=== PATIENT | female | born 1960 | race Caucasian/White ===

== ENCOUNTER → 2020-07-24 14:31 | Outpatient (CLI) | payer OTHER, SELFPAY ==
[2020-07-24 15:07] LABS: COVID19 -Nasal RAPID Negative (Negative)
== END ==
PROVIDERS: Family Provider Family Medicine; PCP Family Medicine; Visit Provider Physician Assistant
DX: Z01.812 Encounter for preprocedural laboratory examination (principal); Z20.822 Contact with and (suspected) exposure to COVID-19
CPT/HCPCS: 87635

== ENCOUNTER 2020-07-26 11:22 | Observation (INO) | payer OTHER, SELFPAY ==
[2020-07-26] VITALS (9 sets, daily range): BP systolic 114–160; BP diastolic 56–100; PULSE 70–113; RESP 14–20; TEMP 36.6–37; O2SAT 97–100; BMI 27.4
[2020-07-26 11:45] LABS: Add Manual Diff / Slide Review NO; Basophils Absolute Auto 100 /uL (0-100); Basophils Percent Auto 0.5 % (0-2); Eosinophils Absolute Auto 0 /uL (0-450); Eosinophils Percent Auto 0.1 % (2-4); Hematocrit 39.5 % (36-46); Hemoglobin 13.2 g/dL (12.0-16.0); Lymphocytes Absolute Auto 1100 /uL (1100-4500); Lymphocytes Percent Auto 8.8 % (25-40); Mean Corpuscular HGB Conc 33.4 % (30-36); Mean Corpuscular Hemoglobin 28.8 PG (26-34); Mean Corpuscular Volume 86.2 fL (80-100); Monocytes Absolute Auto 900 /uL (0-900); Monocytes Percent Auto 7.1 % (3-14); Neutrophils Absolute Auto 10700 /uL (1500-7000); Neutrophils Percent Auto 83.5 % (50-75); Platelet Count 254 X10^3/uL (150-400); Red Blood Cell Count 4.58 X10^6/uL (4.0-5.2); White Blood Cell Count 12.8 X10^3/uL (4.5-11.0)
[2020-07-26 11:51] LABS: Prothrombin Time 11.6 SECONDS (10.1-12.7)
[2020-07-26 11:54] LABS: PTT Partial Thromboplastin Tim 31 SECONDS (26.4-36.2)
[2020-07-26 11:56] LABS: Alanine Aminotransferase 20 IU/L (<35); Albumin 4.8 g/dL (3.5-5.0); Albumin Globulin Ratio 1.3 (1.0-2.8); Alkaline Phosphatase 83 U/L (38-126); Aspartate Aminotransferase 28 IU/L (14-36); Bilirubin Total 0.7 mg/dL (0.2-1.3); Blood Urea Nitrogen 8 mg/dL (7-17); Calcium 9.7 mg/dL (8.4-10.2); Carbon Dioxide 25 mmol/L (22-32); Chloride 103 mmol/L (98-107); Estimated Glomerular Filt Rate > 60.0 mL/min (>60); Globulin 3.6 g/dL (1.7-4.1); Glucose 125 mg/dL (70-100); HEMOLYSIS < 15 (0-50); Lipase 79 U/L (23-300); Potassium 3.5 mmol/L (3.4-5.1); Sodium 137 mmol/L (137-145); Total Protein 8.4 g/dL (6.3-8.2)
--- NOTE | 2020-07-26 11:58 | ED_ITS ---
HPI - Abdominal Pain General Chief Complaint: Abdominal Pain Stated Complaint: abd pain right side Time Seen by Provider: 07/26/20 11:54 Source: patient Mode of arrival: Ambulatory Limitations: no limitations History of Present Illness HPI narrative: Patient is a 59-year-old female with history of colon polyps presenting today actually for colonoscopy this afternoon she had prep last night and suddenly developed right lower quadrant pain. She has no flank pain it has not migrated or radiated. She has had episodes of nausea and vomiting as well. She thought initially the pain was from colonoscopy prep but it has persisted and continued to be in 1 location. No fever or chills was feeling well yesterday. Colonoscopy is routine and follow-up. MD complaint: abdominal pain Onset (ago): hour(s) Pain Consistency: constant Location: RLQ Severity: moderate Quality: cramping and stabbing Radiation: none Migration to: no migration Relieving factors: nothing Related Data Allergies Allergy/AdvReac Type Severity Reaction Status Date / Time latex Allergy Verified 07/26/20 11:37 paroxetine [From Paxil] Allergy Verified 07/26/20 11:37 Review of Systems Review of Systems Narrative: GENERAL: Denies chills, fatigue, malaise, fever, sweats, travel HEENT: Denies sinus pain, ear pain, sore throat, difficulty swallowing, neck pain RESPIRATORY: Denies dyspnea, cough, wheezing, hemoptysis, sputum. CARDIOVASCULAR: Denies chest pain, palpitations, orthopnea, edema GASTROINTESTINAL: See HPI : Denies dysuria, frequency, incontinence, hematuria, urinary retention, flank pain. MUSCULOSKELETAL: Denies weakness, joint pain, or bony pain SKIN: No rash, no erythema, no pruritus NEUROLOGIC: Denies weakness, dizziness, headache, numbness, change in speech, confusion PSYCHIATRIC: No concerning psychosocial issues. 12 point review of systems is negative except for those stated above and HPI Patient History Social History household members: spouse Smoking Status: Unknown if ever smoked Smoking Status: Unknown if ever smoked alcohol intake frequency: holidays/special occasions only Substance Use Type: does not use Exam Initial Vital Signs Initial Vital Signs: Vital Signs Temperature 98.4 F 07/26/20 11:30 Pulse Rate 98 H 07/26/20 11:30 Respiratory Rate 14 07/26/20 11:30 Blood Pressure 160/73 H 07/26/20 11:30 Pulse Oximetry 99 07/26/20 11:30 GENERAL: Well appearing 59-year-old female and in no acute distress. HEENT: Head atraumatic,EOMI, pupils reactive, face symmetric, moist mucous membranes CARDIOVASCULAR: Regular rate and rhythm without murmurs, rubs or gallops. RESPIRATORY: Breath sounds equal bilaterally, no wheezes rales or rhonchi. ABDOMEN: Soft, tender right lower quadrant pain negative Rovsing sign is negative Head sign no guarding or rebound : No CVA tenderness EXTREMITIES: Normal range of motion, no clubbing or edema. Neurovascularly intact NEUROLOGICAL: Alert and oriented x4.Normal gait and speech. Cranial nerves II through XII grossly intact. SKIN: Warm, dry, no laceration, no petechiae, no rashes or lesions. Course Orders Ordered: ED Orders 07/26/20 11:26 Urine Microscopic Stat 07/26/20 11:38 EKG-12 Lead Stat 07/26/20 11:39 Complete Blood Count AUTO DIFF Stat Comprehensive Metabolic Panel Stat Lipase Stat Partial Thromboplastin Time Stat Prothrombin Time INR Stat 07/26/20 12:37 CT abdomen pelvis w con Stat Acetaminophen (Acetaminophen 325 Mg Tablet) 650 mg PO Q6HR PRN PRN Reason: Fever/Mild Pain (1-3) Hydrocodone Bitart/Acetaminophen (Hydrocodone/Acet 5/325 Tablet) 1 tab PO Q4HR PRN PRN Reason: Pain, Moderate (4-6) Lactated Ringer's (Lactated Ringers) 1,000 mls @ 100 mls/hr IV CONT PEPITO Last Admin: 07/26/20 16:02 Dose: 100 mls/hr Documented by: Infusion: 07/26/20 16:02 Dose: 100 mls/hr Documented by: Admin: 07/26/20 15:49 Dose: 100 mls/hr Documented by: CARL Piperacillin Sod/Tazobactam (Sod 3.375 gm/ Sodium Chloride) 100 mls @ 25 mls/hr IV Q8H PEPITO Ketorolac Tromethamine (Ketorolac 30 Mg/Ml Vial) 15 mg IV Q6H PRN PRN Reason: Pain, Moderate (4-6) Stop: 07/31/20 14:36 Ondansetron HCl (Ondansetron 4 Mg/2 Ml Inj) 4 mg IV Q6HR PRN PRN Reason: Nausea And Vomiting Discontinued Medications Diphenhydramine HCl (Diphenhydramine 50 Mg/Ml Vial) 25 mg IV NOW ONE Stop: 07/26/20 12:12 Last Admin: 07/26/20 12:18 Dose: 25 mg Documented by: JACKIE Piperacillin Sod/Tazobactam (Sod 4.5 gm/ Sodium Chloride) 100 mls @ 200 mls/hr IV NOW ONE Stop: 07/26/20 15:14 Last Infusion: 07/26/20 15:43 Dose: 0 mls/hr Documented by: Infusion: 07/26/20 15:00 Dose: 0 mls/hr Documented by: Admin: 07/26/20 14:43 Dose: 200 mls/hr Documented by: JACKIE Ketorolac Tromethamine (Ketorolac 30 Mg/Ml Vial) 15 mg IV Q6H PEPITO Stop: 07/31/20 14:36 Last Admin: 07/26/20 16:05 Dose: Not Given Documented by: CARL Methylprednisolone (Methylprednisolone 125 Mg/2 Ml Vial) 125 mg IV NOW ONE Stop: 07/26/20 12:12 Last Admin: 07/26/20 12:18 Dose: 125 mg Documented by: JACKIE Vital Signs Vital signs: Vital Signs - 8 hr 07/26/20 11:30 07/26/20 12:22 07/26/20 12:23 Temperature 98.4 F Pulse Rate 98 H 113 H 108 H Respiratory Rate 14 Blood Pressure 160/73 H 157/87 H Pulse Oximetry 99 100 100 07/26/20 12:30 07/26/20 13:00 Temperature Pulse Rate 87 80 Respiratory Rate 20 Blood Pressure 147/72 H 134/100 H Pulse Oximetry 100 99 MDM - Abdominal Pain Lab Data Attestation: I reviewed the patient's lab results. Result diagrams: 07/26/20 11:39 07/26/20 11:39 Labs: Lab Results 07/26/20 07/26/20 07/26/20 Range/Units 11:26 11:39 11:39 WBC 12.8 H (4.5-11.0) X10^3/uL RBC 4.58 (4.0-5.2) X10^6/uL Hgb 13.2 (12.0-16.0) g/dL Hct 39.5 (36-46) % MCV 86.2 (80-100) fL MCH 28.8 (26-34) PG MCHC 33.4 (30-36) % RDW 13.0 (11.6-14.8) % Plt Count 254 (150-400) X10^3/uL Neut % (Auto) 83.5 H (50-75) % Lymph % (Auto) 8.8 L (25-40) % [place] % (Auto) 7.1 (3-14) % Eos % (Auto) 0.1 L (2-4) % Baso % (Auto) 0.5 (0-2) % Neut # (Auto) 84008 H (9749-0102) /uL Lymph # (Auto) 1100 (0916-2360) /uL [place] # (Auto) 900 (0-900) /uL Eos # (Auto) 0 (0-450) /uL Baso # (Auto) 100 (0-100) /uL PT 11.6 (10.1-12.7) SECONDS INR 1.0 (0.9-1.3) APTT 31 (26.4-36.2) SECONDS Sodium (137-145) mmol/L Potassium (3.4-5.1) mmol/L Chloride (98-107) mmol/L Carbon Dioxide (22-32) mmol/L BUN (7-17) mg/dL Creatinine (0.52-1.04) mg/dL Estimated GFR (>60) mL/min BUN/Creatinine Ratio (6-22) Glucose (70-100) mg/dL Calcium (8.4-10.2) mg/dL Total Bilirubin (0.2-1.3) mg/dL AST (14-36) IU/L ALT (<35) IU/L Alkaline Phosphatase (38-126) U/L Total Protein (6.3-8.2) g/dL Albumin (3.5-5.0) g/dL Globulin (1.7-4.1) g/dL Albumin/Globulin Ratio (1.0-2.8) Lipase (23-300) U/L Urine RBC 5-10/hpf H (0-5/HPF) Urine WBC 0-1/hpf (0-5/HPF) Ur Squamous Epith Cells 0-1 /hpf (0-5/HPF) Urine Bacteria Few (2-10) H (None) Urine Mucus 1+ H (Negative) Ur Culture Indicated? Cult not indicated 07/26/20 Range/Units 11:39 WBC (4.5-11.0) X10^3/uL RBC (4.0-5.2) X10^6/uL Hgb (12.0-16.0) g/dL Hct (36-46) % MCV (80-100) fL MCH (26-34) PG MCHC (30-36) % RDW (11.6-14.8) % Plt Count (150-400) X10^3/uL Neut % (Auto) (50-75) % Lymph % (Auto) (25-40) % [place] % (Auto) (3-14) % Eos % (Auto) (2-4) % Baso % (Auto) (0-2) % Neut # (Auto) (5210-2964) /uL Lymph # (Auto) (5893-7459) /uL [place] # (Auto) (0-900) /uL Eos # (Auto) (0-450) /uL Baso # (Auto) (0-100) /uL PT (10.1-12.7) SECONDS INR (0.9-1.3) APTT (26.4-36.2) SECONDS Sodium 137 (137-145) mmol/L Potassium 3.5 (3.4-5.1) mmol/L Chloride 103 (98-107) mmol/L Carbon Dioxide 25 (22-32) mmol/L BUN 8 (7-17) mg/dL Creatinine 0.73 (0.52-1.04) mg/dL Estimated GFR > 60.0 (>60) mL/min BUN/Creatinine Ratio 11.0 (6-22) Glucose 125 H (70-100) mg/dL Calcium 9.7 (8.4-10.2) mg/dL Total Bilirubin 0.7 (0.2-1.3) mg/dL AST 28 (14-36) IU/L ALT 20 (<35) IU/L Alkaline Phosphatase 83 (38-126) U/L Total Protein 8.4 H (6.3-8.2) g/dL Albumin 4.8 (3.5-5.0) g/dL Globulin 3.6 (1.7-4.1) g/dL Albumin/Globulin Ratio 1.3 (1.0-2.8) Lipase 79 (23-300) U/L Urine RBC (0-5/HPF) Urine WBC (0-5/HPF) Ur Squamous Epith Cells (0-5/HPF) Urine Bacteria (None) Urine Mucus (Negative) Ur Culture Indicated? Point of care testing: Urine Dip Bedside Urine Glucose Negative Bedside Urine Bilirubin - Negative Bedside Urine Ketone - Negative Urine Specific [place] 1.03 Bedside Urine Occult Blood +++ Bedside Urine pH 6.0 Bedside Urine Protein - Negative Bedside Urine Urobilinogen - Negative Bedside Urine Nitrite - Negative Bedside Urine Leukocytes - Negative Esterase Imaging Data CT scan - abdomen/pelvis: Radiologist's Impression: PROCEDURE: CT ABDOMEN PELVIS W CON INDICATIONS: RIGHT LOWER QUAD PAIN TECHNIQUE: After the administration of intravenous contrast, 5 mm thick sections acquired from the diaphragm to the symphysis. 5 mm coronal and sagittal reformats were acquired. For radiation dose reduction, the following was used: automated exposure control, adjustment of mA and/or kV according to patient size. COMPARISON: [facility], CT, ABDOMEN/PELVIS WITHOUT CONTRAST, 06/12/2010, 12:11. FINDINGS: Image quality: Excellent. ABDOMEN: Lung bases: There is minimal dependent atelectasis. Heart size is normal. There is a small hiatal hernia. Solid organs: There are a few hepatic cysts. The gallbladder appears within normal limits without calcified gallstones. Biliary system is non-dilated. Pancreas enhances normally. No peripancreatic fat stranding or fluid collections. No pancreatic duct dilatation. The spleen is normal in size. No adrenal nodules. Kidneys demonstrate no hydronephrosis. Peritoneum and bowel: Bowel loops demonstrate normal wall thickness and caliber. The appendix demonstrates mild distention with wall thickening, measuring up to approximately 1.2 cm in diameter, with associated periappendiceal fat stranding. Findings are consistent with acute appendicitis. There is a small amount of adjacent free fluid in the right paracolic gutter. No free air. No discrete loculated abscess collection. Nodes and vessels: No retroperitoneal or mesenteric adenopathy by size criteria. Aorta and inferior vena cava are normal in size. Miscellaneous: No ventral hernias. PELVIS: Genitourinary: Bladder wall thickness is normal. Miscellaneous: No inguinal hernias or adenopathy. Bones: No suspicious bony lesions. No vertebral body compression fractures. IMPRESSION: 1. Findings consistent with acute appendicitis. A small amount of adjacent free fluid is demonstrated in the right paracolic gutter which may be reactive or reflect early perforation. Findings discussed with Dr. Schwab on 07/26/20 at 1:35 p.m.. Dictated by: Diego Kan M.D. on 07/26/2020 at 13:33 Approved by: Diego Kan M.D. on 07/26/2020 at 13:40 MDM Narrative Medical decision making narrative: Patient is quite tender in her right lower quadrant she has no flank pain or radiation of pain to her groin to suggest kidney stone although she does have blood in her urine. CT does confirm acute appendicitis with mild leukocytosis of 12. Dr. Aguirre, surgery in the ED to see and evaluate patient. At this time recommend antibiotics and admission. Discharge Plan Departure Patient Disposition: Admitted As Inpatient Clinical Impression: Acute appendicitis Admit Date/Time: 07/26/20 14:31 Admit Provider: Radha Aguirre
[2020-07-26 11:59] LABS: Bacteria Urine Few (2-10); Culture Indicated Urine Cult Not Indicated; Mucus Urine 1+ (Negative); RBC Urine 5-10/HPF (0-5/HPF); Squamous Epithelial Cell Urine 0-1 /HPF (0-5/HPF); WBC Urine 0-1/HPF (0-5/HPF)
[2020-07-26] MEDS: methylPREDNISolone 125 MG/2 ML VIAL IV (12:18)
[2020-07-26] MEDS: diphenhydrAMINE 50 MG/ML VIAL 25 MG IV (12:18)
--- NOTE | 2020-07-26 12:37 | DI.CT.S_ITS ---
PROCEDURE: CT ABDOMEN PELVIS W CON INDICATIONS: RIGHT LOWER QUAD PAIN TECHNIQUE: After the administration of intravenous contrast, 5 mm thick sections acquired from the diaphragm to the symphysis. 5 mm coronal and sagittal reformats were acquired. For radiation dose reduction, the following was used: automated exposure control, adjustment of mA and/or kV according to patient size. COMPARISON: [facility], CT, ABDOMEN/PELVIS WITHOUT CONTRAST, 06/12/2010, 12:11. FINDINGS: Image quality: Excellent. ABDOMEN: Lung bases: There is minimal dependent atelectasis. Heart size is normal. There is a small hiatal hernia. Solid organs: There are a few hepatic cysts. The gallbladder appears within normal limits without calcified gallstones. Biliary system is non-dilated. Pancreas enhances normally. No peripancreatic fat stranding or fluid collections. No pancreatic duct dilatation. The spleen is normal in size. No adrenal nodules. Kidneys demonstrate no hydronephrosis. Peritoneum and bowel: Bowel loops demonstrate normal wall thickness and caliber. The appendix demonstrates mild distention with wall thickening, measuring up to approximately 1.2 cm in diameter, with associated periappendiceal fat stranding. Findings are consistent with acute appendicitis. There is a small amount of adjacent free fluid in the right paracolic gutter. No free air. No discrete loculated abscess collection. Nodes and vessels: No retroperitoneal or mesenteric adenopathy by size criteria. Aorta and inferior vena cava are normal in size. Miscellaneous: No ventral hernias. PELVIS: Genitourinary: Bladder wall thickness is normal. Miscellaneous: No inguinal hernias or adenopathy. Bones: No suspicious bony lesions. No vertebral body compression fractures. IMPRESSION: 1. Findings consistent with acute appendicitis. A small amount of adjacent free fluid is demonstrated in the right paracolic gutter which may be reactive or reflect early perforation. Findings discussed with Dr. Schwab on 07/26/20 at 1:35 p.m.. Dictated by: Diego Kan M.D. on 07/26/2020 at 13:33 Approved by: Diego Kan M.D. on 07/26/2020 at 13:40
[2020-07-26] MEDS: PIPERACILLIN/TAZO 4.5 GM in SODIUM CHLORIDE 0.9% 100 ML 200 ML IV (14:43)
--- NOTE | 2020-07-26 14:55 | P.HP_ITS ---
History of Present Illness History of Present Illness Date Patient Seen: 07/26/20 Time Patient Seen: 14:56 Date of Onset of Symptoms: 07/25/20 Chief complaint: abd pain right side Narrative: Had discomfort yesterday but began bowel prep for colonoscopy. Colonoscopy scheduled for today to coincide with 's since they are now from [facility]. Pain worsened and she was seen in ED. CT scan shows acute appendicitis. no fecal lith, possible right colic free fluid. Labs reveiwed as well. Pain localized to RLQ and is dull. She had an episode similar several years ago that spontaneously resolved. Her history also is concerning for a serrated adenoma in ascending colon in 2010. Patient History Family & Social History Safety & Behavioral: Feels Safe in Current Yes Environment Been Physically Hurt or No Threatened By a Person Tobacco & Substance use: Smoking Status Unknown if ever smoked alcohol intake frequency holiday/special occasion Substance Use Type does not use Meds Home Medications and Allergies Allergies Allergy/AdvReac Type Severity Reaction Status Date / Time latex Allergy Verified 07/26/20 11:37 paroxetine [From Paxil] Allergy Verified 07/26/20 11:37 Review of Systems Review of Systems Narrative: RLQ pain, no fever. No cough. See is vacinated for Covid and Covid negative. ROS: Yes All systems reviewed with the patient and are negative except as otherwise documented Exam Vital Signs (past 8 hours): - 07/26/20 11:30 07/26/20 12:22 07/26/20 12:23 Temperature 98.4 F Pulse Rate 98 H 113 H 108 H Respiratory Rate 14 Blood Pressure 160/73 H 157/87 H Pulse Oximetry 99 100 100 07/26/20 12:30 07/26/20 13:00 Temperature Pulse Rate 87 80 Respiratory Rate 20 Blood Pressure 147/72 H 134/100 H Pulse Oximetry 100 99 Oxygen Delivery Method Room Air Const General: cooperative and healthy appearing Nutritional Appearance: average body habitus HENWA Head: normal to inspection Ears: hearing grossly normal bilaterally Nose: external nose normal Eyes General: appearance normal, both eyes and all related structures Alignment and Position: alignment normal Sclera: sclerae normal Neck Neck: trachea midline Chest Chest: normal inspection of the chest Resp Effort & Inspection: normal respiratory effort and able to speak in complete sentences Auscultation: clear to auscultation bilaterally Cardio Rate: tachycardic Rhythm: regular rhythm GI Inspection: normal to inspection Palpation: soft and tender (RLQ tenderness) Skin General: no rashes or lesions noted Trauma: no lacerations or abrasions Neuro General: patient alert and patient oriented x3 Extrem General: normal to inspection and full ROM Psych Appearance: grossly normal Judgment: judgment good Objective Labs Result Diagrams: 07/26/20 11:39 07/26/20 11:39 Labs: Laboratory Results - last 24 hr 07/26/20 07/26/20 07/26/20 11:26 11:39 11:39 WBC 12.8 H RBC 4.58 Hgb 13.2 Hct 39.5 MCV 86.2 MCH 28.8 MCHC 33.4 RDW 13.0 Plt Count 254 Neut % (Auto) 83.5 H Lymph % (Auto) 8.8 L [place] % (Auto) 7.1 Eos % (Auto) 0.1 L Baso % (Auto) 0.5 Neut # (Auto) 60214 H Lymph # (Auto) 1100 [place] # (Auto) 900 Eos # (Auto) 0 Baso # (Auto) 100 PT 11.6 INR 1.0 APTT 31 Sodium Potassium Chloride Carbon Dioxide BUN Creatinine Estimated GFR BUN/Creatinine Ratio Glucose Calcium Total Bilirubin AST ALT Alkaline Phosphatase Total Protein Albumin Globulin Albumin/Globulin Ratio Lipase Urine RBC 5-10/hpf H Urine WBC 0-1/hpf Ur Squamous Epith Cells 0-1 /hpf Urine Bacteria Few (2-10) H Urine Mucus 1+ H Ur Culture Indicated? Cult not indicated 07/26/20 11:39 WBC RBC Hgb Hct MCV MCH MCHC RDW Plt Count Neut % (Auto) Lymph % (Auto) [place] % (Auto) Eos % (Auto) Baso % (Auto) Neut # (Auto) Lymph # (Auto) [place] # (Auto) Eos # (Auto) Baso # (Auto) PT INR APTT Sodium 137 Potassium 3.5 Chloride 103 Carbon Dioxide 25 BUN 8 Creatinine 0.73 Estimated GFR > 60.0 BUN/Creatinine Ratio 11.0 Glucose 125 H Calcium 9.7 Total Bilirubin 0.7 AST 28 ALT 20 Alkaline Phosphatase 83 Total Protein 8.4 H Albumin 4.8 Globulin 3.6 Albumin/Globulin Ratio 1.3 Lipase 79 Urine RBC Urine WBC Ur Squamous Epith Cells Urine Bacteria Urine Mucus Ur Culture Indicated? Assessment & Plan Assessment & Plan narrative: I reveiwed the CT scan personally and agree with appendicitis, along with benign liver cyst. Plan: medical manage for acute appendicitis, recheck in am to determine if it is successful. Then discharge with 5 days po antibiotics for completed treatment of appendicitis and reschedule the colonoscopy. COVID-19 COVID-19 status: Negative Time Spent With Patient Time with patient: 15-24 minutes
[2020-07-26] MEDS: LACTATED RINGERS 1,000 ML 100 ML IV ×2 (15:49→16:02)
[2020-07-26] MEDS: PIPERACILLIN/TAZO 3.375 GM in SODIUM CHLORIDE 0.9% 100 ML 25 ML IV (18:25)
[2020-07-26 20:50] LABS: COVID19 - ADMIT (NP swab/PCR) Negative (Negative)
[2020-07-27] MEDS: LACTATED RINGERS 1,000 ML 100 ML IV (01:49)
[2020-07-27] MEDS: PIPERACILLIN/TAZO 3.375 GM in SODIUM CHLORIDE 0.9% 100 ML 25 ML IV (03:00)
[2020-07-27 05:00] VITALS: BP 110/64; PULSE 76; RESP 16; TEMP 36.6; O2SAT 97
[2020-07-27 08:05] VITALS: BP 124/64; PULSE 70; RESP 16; TEMP 36.7; O2SAT 100
--- NOTE | 2020-07-27 09:32 | P.DS_ITS ---
History of Present Illness History of Present Illness Chief complaint: abd pain right side Narrative: Had discomfort yesterday but began bowel prep for colonoscopy. Colonoscopy scheduled for today to coincide with 's since they are now from [facility]. Pain worsened and she was seen in ED. CT scan shows acute appendicitis. no fecal lith, possible right colic free fluid. Labs reveiwed as well. Pain localized to RLQ and is dull. She had an episode similar several years ago that spontaneously resolved. Her history also is concerning for a serrated adenoma in ascending colon in 2010. Discharge Providers Provider Date of admission: 07/26/20 14:31 Discharge Date: 07/27/20 Primary care physician: Phu Kraft MD Discharge provider: Radha Aguirre MD Summary Hospital Course Discharge Diagnosis: appendicitis, h/o colon polyps Hospital Course: appendicitis responded to medical management of antibiotics Status at Discharge Cognitive/behavioral status at discharge: oriented Functional status at discharge: independent ambulation Overall status at discharge: patient is back to baseline Time Spent with Patient Time spent: Less than 30 minutes Exam Vital Signs (past 8 hours): - 07/27/20 05:00 07/27/20 08:05 Temperature 97.8 F 98.1 F Pulse Rate 76 70 Respiratory Rate 16 16 Blood Pressure 110/64 124/64 Pulse Oximetry 97 100 Oxygen Delivery Method Room Air Oxygen Flow Rate 0 Objective Labs Result Diagrams: 07/26/20 11:39 07/26/20 11:39 Labs: Laboratory Results - last 24 hr 07/26/20 07/26/20 07/26/20 11:26 11:39 11:39 WBC 12.8 H RBC 4.58 Hgb 13.2 Hct 39.5 MCV 86.2 MCH 28.8 MCHC 33.4 RDW 13.0 Plt Count 254 Neut % (Auto) 83.5 H Lymph % (Auto) 8.8 L [place] % (Auto) 7.1 Eos % (Auto) 0.1 L Baso % (Auto) 0.5 Neut # (Auto) 35492 H Lymph # (Auto) 1100 [place] # (Auto) 900 Eos # (Auto) 0 Baso # (Auto) 100 PT 11.6 INR 1.0 APTT 31 Sodium Potassium Chloride Carbon Dioxide BUN Creatinine Estimated GFR BUN/Creatinine Ratio Glucose Calcium Total Bilirubin AST ALT Alkaline Phosphatase Total Protein Albumin Globulin Albumin/Globulin Ratio Lipase Urine RBC 5-10/hpf H Urine WBC 0-1/hpf Ur Squamous Epith Cells 0-1 /hpf Urine Bacteria Few (2-10) H Urine Mucus 1+ H Ur Culture Indicated? Cult not indicated SARS-CoV-2 (PCR) 07/26/20 07/26/20 11:39 19:45 WBC RBC Hgb Hct MCV MCH MCHC RDW Plt Count Neut % (Auto) Lymph % (Auto) [place] % (Auto) Eos % (Auto) Baso % (Auto) Neut # (Auto) Lymph # (Auto) [place] # (Auto) Eos # (Auto) Baso # (Auto) PT INR APTT Sodium 137 Potassium 3.5 Chloride 103 Carbon Dioxide 25 BUN 8 Creatinine 0.73 Estimated GFR > 60.0 BUN/Creatinine Ratio 11.0 Glucose 125 H Calcium 9.7 Total Bilirubin 0.7 AST 28 ALT 20 Alkaline Phosphatase 83 Total Protein 8.4 H Albumin 4.8 Globulin 3.6 Albumin/Globulin Ratio 1.3 Lipase 79 Urine RBC Urine WBC Ur Squamous Epith Cells Urine Bacteria Urine Mucus Ur Culture Indicated? SARS-CoV-2 (PCR) Negative [facility] Social History household members: spouse Smoking Status: Unknown if ever smoked Discharge Plan Discharge Plan Patient Disposition: Home Discharge orders & Medications Prescriptions: New amoxicillin-pot clavulanate [Augmentin] 875-125 mg Tablet 1 tab PO BID Qty: 10 RF: 0 Follow up/Referrals: Phu Kraft MD [Primary Care Provider] - Diet/Activity/Treatments Diet: Diet as Tolerated Activity: as tolerated, no restrictions Other treatments: reschedule colonoscopy and consider elective appendectomy. Also reasonable to wait to another attack of appendicitis before surgical intervention. Discharge Data Primary Care Provider: Phu Kraft Quality VTE Deep Vein Thrombosis/Pulmonary Embolism Present on Admission: No
[2020-07-27] MEDS: AMOXICILLIN/CLAV 875/125 MG 1 TAB PO (10:28)
--- NOTE | 2020-07-27 11:23 | CM.DANOTE ---
Addendum entered by Yaritza Garcia LPN 07/27/20 11:29: A check in with KELLI Garcia reveals that the antibiotic pt was given today has resulted in nausea and vomiting in the past for pt. Pt will be observed until 1300 to make sure she is tolerating this drug before she leaves. Original Note: Discharge Planning/Care Management DCP: assessment: case received, EMR reviewed. DC order for home noted. Case discussed in Team Rounds. Pt admitted to care of [facility] Dr. Kali Aguirre yesterday afternoon and with dx of acute appendicitis. She will d/c home today with her and return to their home in [place]. She will reschedule her colonoscopy and consider elective appendectomy at a future time. Payer: [facility] PCP: Dr. Aniyah Kraft Admission status: OBS: per UR KELLI Rae No d/c concerns were noted by the care team members. Advanced directive, confirm from FAMILY Start: 07/26/20 15:59 Freq: Q24H Status: Active Protocol: Document 07/26/20 16:06 KA (Rec: 07/26/20 16:06 KA [id number]) Advance Directive, confirm on record Time 16:06 Person contacted pt doesn't have one completed. Copy received No CM Discharge Assessment Start: 07/27/20 11:22 Freq: Status: Active Protocol: Document 07/27/20 11:22 ITV (Rec: 07/27/20 11:23 ITV [id number]) Discharge Planning Assessment Advance Directives? No: not completed Advance Directives on File No History Provided By Medical Record Prior Living Arrangements House Household Members spouse Is patient alert and oriented? Yes Discharge Plan Home
--- NOTE | 2020-07-27 11:33 | PC.NURSE ---
Addendum entered by Radha Echols R.N. 07/27/20 15:29: Report passed on to Miriam RN who is floating. She just called and got orders for ativan, and scope patch if needed. We are going to keep her here until around 1800 and see how she does, otherwise patient will just discharge tomorrow. She states that she felt dizzy and was unable to make it to the toilet, so bedside commode is in place. Report passed on to RN. Addendum entered by Radha Echols R.N. 07/27/20 14:25: Patient is going to rest until 1600 and see if she feels better, if not will pass onto Anju RN to call objects conservator surgeon and let her know. Addendum entered by Radha Echols R.N. 07/27/20 14:09: Patient is having some emesis about three hours after augmentin given and some diarrhea. aware and ordered cipro to be started on patient. She has also had some more diarrhea. Will keep patient here for a bit longer to see how she does after zofran given to her. Original Note: Patient has denied pain to her lower r.side. She is going to be discharged home after we watch her with taking the oral augmentin per Dr. Aguirre. She has taken augmentin in the past and states that she had vomiting and diarrhea about 2 hours after she had it. She seems to be doing well now.
[2020-07-27 12:40] VITALS: BP 137/76; PULSE 83; RESP 14; TEMP 36.7; O2SAT 98
[2020-07-27] MEDS: ONDANSETRON 4 MG/2 ML INJ IV (13:25)
[2020-07-27] MEDS: SODIUM CHLORIDE 0.9% 1,000 ML 100 ML IV (15:54)
[2020-07-27] MEDS: LORazepam 2 MG/ML INJ 1 MG IV (15:54)
[2020-07-27 16:00] VITALS: BP 120/69; PULSE 86; RESP 19; TEMP 37; O2SAT 100
[2020-07-27 18:15] LABS: Add Manual Diff / Slide Review NO; Basophils Absolute Auto 0 /uL (0-100); Basophils Percent Auto 0.1 % (0-2); Eosinophils Absolute Auto 0 /uL (0-450); Eosinophils Percent Auto 0.5 % (2-4); Hemoglobin 15.6 g/dL (12.0-16.0); Lymphocytes Absolute Auto 400 /uL (1100-4500); Mean Corpuscular HGB Conc 33.9 % (30-36); Mean Corpuscular Hemoglobin 29.5 PG (26-34); Mean Corpuscular Volume 87.1 fL (80-100); Monocytes Absolute Auto 1300 /uL (0-900); Monocytes Percent Auto 12.6 % (3-14); Neutrophils Absolute Auto 8800 /uL (1500-7000); Neutrophils Percent Auto 82.8 % (50-75); Platelet Count 226 X10^3/uL (150-400); Red Blood Cell Count 5.27 X10^6/uL (4.0-5.2); White Blood Cell Count 10.7 X10^3/uL (4.5-11.0)
[2020-07-27] MEDS: CIPROFLOXACIN 250 MG TABLET 500 MG PO (20:03)
--- NOTE | 2020-08-06 13:28 | PC.NURSE ---
Late Entry; NS infusion initiated 07/27 at 15:54, stopped by discharge at 20:10.
== END 2020-07-27 20:10 | disposition home or self-care (01) ==
LOC: ED 14:22 → AC 14:57
PROVIDERS: Admitting Provider Surgery; Emergency Provider Emergency Medicine; Family Provider Family Medicine; PCP Family Medicine; Referring Provider Emergency Medicine; Visit Provider Surgery
DX: K35.80 Unspecified acute appendicitis (principal); R11.2 Nausea with vomiting, unspecified; Z20.822 Contact with and (suspected) exposure to COVID-19
CPT/HCPCS: 36415; 36592; 74177; 80053; 81003; 81015; 83690; 85025; 85610; 85730; 87635; 93005; 93010; 96361; 96365; 96366; 96375; 99217; 99218; 99284; C9803; G0378; J1200; J1885; J2060; J2405; J2543; J2930; Q9967

== ENCOUNTER 2020-10-11 12:18 | Day surgery (SDC) | payer OTHER, SELFPAY ==
[2020-07-26 15:47] VITALS: BMI 27.4
--- NOTE | 2020-10-11 | PATH_ITS ---
[facility] Accession Number: [id number] . 01 Material submitted: . colon - SIGMOID 2 MM . 01 Clinical history: . SDC . 02 Diagnosis: Sigmoid, 2 mm: Hyperplastic polyp. MRV 10/15/2020 1047 Local . 02 Electronically signed: . Janina Jenkins MD, Pathologist NPI- [id number] . 01 Gross description: . SIGMOID 2 MM: Received in formalin is 1 fragment(s) of [place], soft tissue measuring 0.4 x 0.2 x 0.2 cm submitted entirely in 1 cassette(s) /PABLO 10/12/2020 0710 Local . 02 Pathologist provided ICD-10: Z12.11, K63.5 . 02 CPT . 363178 Performed at: 01 [facility] [address] [id number] MD Diego Garcia MD Phone: [phone] Performed at: 02 [facility] [address] [place], [place] [id number] MD Heaven Beck MD Phone: [phone]
--- NOTE | 2020-10-11 12:24 | PM.HP.1 ---
History of Present Illness History of Present Illness Date Patient Seen: 10/11/20 Chief complaint: ARC Narrative: 59 Years Old Female seen today for consideration of a screening colonoscopy. Last colonoscopy on 10/15/2010 showed an 8 mm ascending colon sessile serrated adenoma with no high-grade dysplasia or carcinoma identified and grade 1 internal hemorrhoids. There have been no lower GI symptoms suggesting disease such as change in bowel habits, bleeding, abdominal pain or anemia. There's been no family history of colon cancer or colon polyps. Overall health issues have been stable, including no major cardiac events for at least 6 weeks. Past Medical History: Hx of Abnormal Pap Smear (03/1994) Miscarriage (05/1995) History of colon polyps HEMATURIA, GROSS Knee pain, left FATIGUE Vaginal atrophy RAYNAUD'S SYNDROME VITAMIN D DEFICIENCY HYPERLIPIDEMIA Past Surgical History: HYSTERECTOMY, lap W/O OVARIES (Has Cervix) Colonoscopy, 2010, SSA, ascending Family History: Father: Alcohol, Diabetes Mother: Breast Cancer (age 32), grandmother Siblings:brother 3 year younger obesity, Social History: Marital Status: Children: Marcello Occupation: Previous Occupational Therapist Household Members: Marcello (02/28/88), Jose (62) Education: College Patient History Family & Social History Social History: household members spouse Tobacco & Substance use: Smoking Status Unknown if ever smoked alcohol intake frequency holiday/special occasion Substance Use Type does not use Meds Home Medications and Allergies Home Medications Medication Instructions Recorded Confirmed Type No Known Home Medications 10/11/20 10/11/20 History Allergies Allergy/AdvReac Type Severity Reaction Status Date / Time amoxicillin [From Augmentin] AdvReac Intermediate Diarrhea Verified 10/11/20 12:49 and vomiting clavulanic acid AdvReac Intermediate Diarrhea Verified 10/11/20 12:49 [From Augmentin] and vomiting paroxetine [From Paxil] AdvReac Mild Diarrhea Verified 10/11/20 12:49 and vomiting Review of Systems Review of Systems Narrative: See HPI. Exam Narrative Exam Narrative: GENERAL: Alert and oriented, appearing stated age and in no acute distress. HEENT: Head normocephalic/atraumatic. LUNGS: Clear to ausculation bilaterally, no wheezes, rhonchi or rales. CV: Normal S1 and S2 with regular rate and rhythm, no audible murmurs, rubs or gallops. ABDOMEN: Soft, non-tender, non-distended, no organomegaly. Positive bowel sounds. EXTREMITIES: No clubbing, cyanosis, or edema. NEURO: Cranial nerves II through XII grossly intact, no focal deficits. PSYCH: Alert and oriented x 3. SKIN: No concerning lesions. Assessment & Plan Assessment & Plan narrative: 1. History of colon polyps 2. Screening for colon cancer Plan for colonoscopy. The nature and character of the procedure as well as anticipated results were discussed. The possibility of not completing the procedure was also discussed. Possible complications including aspiration pneumonia, bleeding, perforation and reaction to medications either for sedation or preparation and missed lesions were discussed. Questions were answered and proceeding to the colonoscopy was elected. Informed consent signed. I sincerely appreciate the referral allowing me to participate in this patient's care. Please contact me with any questions or concerns.
--- NOTE | 2020-10-11 12:25 | PM.OP.ENDO ---
Operative Date/Time/Diagnoses Date of procedure: 10/11/20 Procedure Notes SCOAP/Timeout: 2:43 p.m. Procedure in detail: ENDOSCOPIST: Jessica Jaffe MD Sedation RN: Marie Moore RN Sedation start time: 2:44 p.m. Sedation end time: 3:02 p.m. PROCEDURE: Colonoscopy with biopsy INDICATIONS: 1. History of colon polyps 2. Screening for colon cancer MEDICATION: Levsin 0.125 mg sublingual, incremental doses of Versed and fentanyl until appropriate level sedation achieved. ASA CLASS: 2 CECAL WITHDRAWAL TIME: 7 minutes COMPLICATIONS: None. EXTENT OF PROCEDURE: Cecum. QUALITY OF PREP: Good with portions of liquid stool. PROCEDURE: Prior to insertion of the colonoscope, a digital rectal examination was accomplished with circumferential palpation of the distal rectal mucosa without significant findings being noted. The high-definition colonoscope was passed into the rectum in the usual fashion and advanced over to the cecum without difficulty. The ileocecal valve, appendiceal stoma, and medial wall all could be inspected and no abnormalities were seen. ASCENDING COLON: As the colonoscope was withdrawn, care was taken to expose and inspect the haustral folds and no abnormalities were seen. HEPATIC FLEXURE: Normal, no polyps, diverticula or other abnormalities. TRANSVERSE COLON: Normal, no polyps, diverticula or other abnormalities. DESCENDING COLON: Normal, no polyps, diverticula or other abnormalities. SIGMOID COLON: 2 mm polyp removed with cold biopsy forceps, otherwise, normal, no diverticula or other abnormalities. RECTUM: Normal. J maneuver was produced. There was no significant perianal disease. The J maneuver was broken. The remainder of the rectum was inspected and there was no external hemorrhoid disease. The scope was withdrawn. IMPRESSION: 1. Sigmoid polyp x1, 2 mm, removed with cold biopsy forceps PLAN: 1. Follow-up in clinic status post pathology results. The possibility of a missed lesion including a malignancy has been discussed with the patient previously. Potential alarm symptoms have been discussed and should be reported immediately.
[2020-10-11 12:53] VITALS: BMI 26.9
[2020-10-11] MEDS: DEXTROSE 5% WATER 1,000 ML 150 ML IV (13:05)
[2020-10-11 13:07] VITALS: BP 140/84; PULSE 85; RESP 16; TEMP 37; O2SAT 97
[2020-10-11] MEDS: HYOSCYAMINE 0.125 MG TABLET PO (13:17)
[2020-10-11] MEDS: fentaNYL 250 MCG/5 ML INJ IV (14:53)
[2020-10-11] MEDS: MIDAZOLAM 5 MG/5 ML VIAL IV (14:53)
[2020-10-11 15:12] VITALS: BP 107/66; PULSE 61; RESP 16; TEMP 36.1; O2SAT 96
[2020-10-11 15:17] VITALS: BP 121/72; PULSE 61; RESP 16; O2SAT 98
[2020-10-11 15:23] VITALS: BP 108/68; PULSE 64; RESP 16; O2SAT 98
[2020-10-11 15:41] VITALS: BP 99/60; PULSE 65; RESP 16; TEMP 36.4; O2SAT 98
[2020-10-11 15:50] VITALS: BP 120/70; PULSE 68; RESP 16; TEMP 36.6; O2SAT 98
== END 2020-10-11 16:00 | disposition home or self-care (01) ==
PROVIDERS: Family Provider Family Medicine; PCP Family Medicine; Referring Provider Student in an Organized Health Care Education/Training Program; Visit Provider Student in an Organized Health Care Education/Training Program
PROC: 0DJD8ZZ Inspection of Lower Intestinal Tract, Via Natural or Artificial Opening Endoscopic (ICD-10-PCS; CPT 45378; principal; 2020-10-11 14:30)
DX: Z12.11 Encounter for screening for malignant neoplasm of colon (principal); Z86.010 Personal history of colon polyps; K63.5 Polyp of colon
CPT/HCPCS: 45380; J2250; J3010

== ENCOUNTER → 2022-10-05 13:03 | Outpatient (CLI) | payer OTHER, SELFPAY ==
[2020-07-26 15:47] VITALS: BMI 27.4
--- NOTE | 2022-10-05 | DI.RAD.S_ITS ---
PROCEDURE: XR CHEST 2V INDICATIONS: chronic cough TECHNIQUE: 2 views of the chest were acquired. COMPARISON: [facility], , CHEST 2 VIEW, 03/26/2009, 10:52. FINDINGS: Surgical changes and devices: None. Lungs and pleura: Lungs are clear. No pleural effusions or pneumothorax. Mediastinum: Mediastinal contours are normal. Heart size is normal. Bones and chest wall: No suspicious bony abnormalities. Soft tissues appear unremarkable. IMPRESSION: No acute cardiopulmonary process. Dictated by: Elver Polk M.D. on 10/05/2022 at 15:51 Approved by: Elver Polk M.D. on 10/05/2022 at 15:51
== END ==
PROVIDERS: Family Provider Family Medicine; PCP Family Medicine; Referring Provider Family Medicine; Visit Provider Family Medicine
DX: R05.3 Chronic cough (principal)
CPT/HCPCS: 71046